=== PATIENT | female | born 1975 ===

== ENCOUNTER 2025-03-01 21:50 | Emergency (ER) | payer MEDICAID ==
[2025-03-01] MEDS: Ketorolac 30 MG/ML SDV IM ONE (22:44)
== END 2025-03-01 23:06 | disposition home or self-care (01) ==
LOC: DL.ED 21:50
DX: S72.002A Fracture of unspecified part of neck of left femur, initial encounter for closed fracture (principal); G89.29 Other chronic pain; M25.562 Pain in left knee; X50.0XXA Overexertion from strenuous movement or load, initial encounter; Y93.89 Activity, other specified
CPT/HCPCS: 73562-LT; 96372; 99283; 99284; J1885